=== PATIENT | male | born 1985 | race Two or more races ===

== ENCOUNTER 2021-08-31 06:20 | Emergency (ER) | payer MEDICAID, OTHER ==
[~2021-08-31] VITALS: Ht 185.4 cm; Wt 95.3 kg
[2021-08-31] MEDS ORDERED: ALUM & MAG HYDROX-SIMETH LIQ(MAALOX) 30 ML PO ONE (06:45)
[2021-08-31] MEDS ORDERED: FAMOTIDINE (10MG/ML) 2ML VL IV ONE (06:45)
[2021-08-31] MEDS ORDERED: ONDANSETRON HCL 4 MG/2 ML VIAL IV ONE (06:45)
[2021-08-31] MEDS ORDERED: LIDOCAINE VISCOUS 2% 15ML UD PO ONE (06:45)
[2021-08-31 07:00] VITALS: BP 131/72
[2021-08-31 07:59] LABS: Basophils # (auto) 0 10 ^3/uL (0-0.2); Basophils % (auto) 0.2 % (0.0-2.0); Eosinophils # (auto) 0 10 ^3/uL (0-0.8); Eosinophils % (auto) 0.1 % (0.0-7.0); Hematocrit 40.8 % (41.0-53.0); Lymphocytes % (auto) 9.5 % (10.0-50.0); Mean Corpuscular Hemoglobin 31.5 pg (28.0-32.0); Mean Corpuscular Hgb Conc. 34.4 g/dL (32.0-36.0); Mean Corpuscular Volume 91.6 fL (80.0-100.0); Monocytes # (auto) 0.8 10 ^3/uL (0-1.3); Monocytes % (auto) 7.4 % (0.0-12.0); Neutrophils # (auto) 9.1 10 ^3/uL (1.6-8.6); Neutrophils % (auto) 82.8 % (37.0-80.0); Red Blood Cells 4.45 10^6/uL (4.5-5.90); Red Cell Distribution Width 13.5 % (11.8-14.3)
[2021-08-31 08:10] LABS: Albumin 4.1 g/dL (3.4-5.0); Calcium 9.1 mg/dL (8.5-10.1); Potassium 3.9 mmol/L (3.5-5.1)
[2021-08-31 08:15] LABS: BUN/Creatinine Ratio 14.4; Bilirubin, Total 1.2 mg/dL (0.2-1.0); Total Protein 7.9 g/dL (6.4-8.2)
[2021-08-31 09:01] LABS: INR 1.02 (0.9-1.15); Partial Thromboplastin Time 26.6 sec (23.6-33.0)
== END 2021-08-31 09:52 | disposition home or self-care (01) ==
LOC: EDBD 06:20 → ER 06:20
DX: R11.2 Nausea with vomiting, unspecified (principal); F10.10 Alcohol abuse, uncomplicated; F17.210 Nicotine dependence, cigarettes, uncomplicated; F12.10 Cannabis abuse, uncomplicated; R94.31 Abnormal electrocardiogram [ECG] [EKG]
CPT/HCPCS: 36415; 80053; 85025; 85610; 85730; 86850; 86900; 86901; 93005; 96374; 96375; 99284; J2405; J3490

== ENCOUNTER 2021-09-01 09:25 | Inpatient (IN) | payer MEDICAID ==
[~2021-09-01] VITALS: Ht 177.8 cm; Wt 96.5 kg
[2021-09-01] MEDS ORDERED: OXYCODONE W/ ACETAMINOPHEN 5/325MG TABLET PO ONE (11:00)
[2021-09-01] MEDS ORDERED: ONDANSETRON HCL 4 MG/2 ML VIAL IV ONE ×2 (11:00→12:15)
[2021-09-01 11:10] LABS: Basophils # (auto) 0 10 ^3/uL (0-0.2); Basophils % (auto) 0.3 % (0.0-2.0); Eosinophils # (auto) 0 10 ^3/uL (0-0.8); Hematocrit 45.3 % (41.0-53.0); Hemoglobin 15.8 g/dL (13.5-17.5); Lymphocytes # (auto) 0.6 10 ^3/uL (0.4-5.4); Lymphocytes % (auto) 4.7 % (10.0-50.0); Mean Corpuscular Hemoglobin 32.1 pg (28.0-32.0); Mean Corpuscular Hgb Conc. 34.8 g/dL (32.0-36.0); Mean Corpuscular Volume 92.2 fL (80.0-100.0); Monocytes # (auto) 0.4 10 ^3/uL (0-1.3); Monocytes % (auto) 3.3 % (0.0-12.0); Neutrophils # (auto) 10.8 10 ^3/uL (1.6-8.6); Neutrophils % (auto) 91.7 % (37.0-80.0); Nucleated Red Blood Cells % 0.1 %; Red Blood Cells 4.91 10^6/uL (4.5-5.90); Red Cell Distribution Width 13.4 % (11.8-14.3); White Blood Cell 11.8 10^3/uL (4.4-10.8)
[2021-09-01 11:40] LABS: Albumin 4.2 g/dL (3.4-5.0); Anion Gap 7 (5-15); Blood Urea Nitrogen 11 mg/dL (7-18); Calcium 9.7 mg/dL (8.5-10.1); Carbon Dioxide 27 mmol/L (21-32); Chloride 99 mmol/L (98-107); Glucose 119 mg/dL (74-106); Potassium 3.8 mmol/L (3.5-5.1); Sodium 133 mmol/L (136-145)
[2021-09-01 11:46] LABS: Alanine Aminotransferase 100 U/L (16-61); Alkaline Phosphatase 117 U/L (45-117); Aspartate Aminotransferase 68 U/L (15-37); BUN/Creatinine Ratio 8.4; Bilirubin, Total 1.3 mg/dL (0.2-1.0); GFR African American 80 mL/min; GFR Non-African American 66 mL/min; Total Protein 8.7 g/dL (6.4-8.2)
[2021-09-01] MEDS ORDERED: SODIUM CHLORIDE 0.9% 1,000 ML IV ONE (12:15)
[2021-09-01] MEDS ORDERED: VANCOMYCIN 1GM/250ML 250 ML IV ONE (12:15)
[2021-09-01] MEDS ORDERED: PIPERACILLIN-TAZOB 3.375GM 100 ML IV ONE (12:15)
[2021-09-01] MEDS ORDERED: HYDROmorphone HCL 2 MG/ML VL IV ONE (12:15)
[2021-09-01] MEDS ORDERED: ROCURONIUM 10MG/ML 10ML VIAL IV ONE (13:45)
[2021-09-01] MEDS ORDERED: SUCCINYLCHOLINE CHLORIDE 20 MG/ML 10ML VIAL IV ONE (13:45)
[2021-09-01] MEDS ORDERED: NEOSTIGMINE 1 MG/ML INJ (10mg/10ML VIAL) ONE (13:48)
[2021-09-01] MEDS ORDERED: GLYCOPYRROLATE 0.2 MG/ML 1ML VIAL ONE (13:48)
[2021-09-01] MEDS ORDERED: MEPERIDINE HCL (50 MG/ML) 1 ML VIAL ONE (13:48)
[2021-09-01] MEDS ORDERED: MIDAZOLAM HCL 2MG/2ML 2ml VIAL (1mg/ml) ONE (13:48)
[2021-09-01] MEDS ORDERED: ONDANSETRON HCL 4 MG/2 ML VIAL ONE (13:48)
[2021-09-01] MEDS ORDERED: SODIUM CHLORIDE LOCK 10 ML ONE (13:48)
[2021-09-01] MEDS ORDERED: PROPOFOL 10 MG/ML 20 ML IV ONE (13:48)
[2021-09-01] MEDS ORDERED: fentaNYL CITRATE 100 MCG/2 ML VL ONE (13:48)
[2021-09-01] MEDS ORDERED: DexAMETHasone SOD PHOS 10MG/1ML VIAL INJ ONE (13:56)
[2021-09-01] MEDS ORDERED: BUPIVACAINE W/ EPINEPH 0.25% INJ 50ML MDV ONE (14:07)
[2021-09-01] MEDS ORDERED: KETOROLAC TROMETH 30 MG/ML 1ML VIAL IV ONE (14:15)
[2021-09-01] MEDS ORDERED: MORPHINE SULFATE 4 MG/ML SYR/VIAL IV PRN (14:15)
[2021-09-01] MEDS ORDERED: METOCLOPRAMIDE HCL 5MG/ml INJ 2ml VIAL IV PRN (14:15)
[2021-09-01] MEDS ORDERED: fentaNYL CITRATE 100 MCG/2 ML VL IV PRN (14:15)
[2021-09-01] MEDS ORDERED: SUGAMMADEX 200mg/2ml Vial (100MG/ML) IV ONE (15:35)
[2021-09-01] MEDS: HYDROmorphone HCL 2 MG/ML VL IV PRN ×6 (16:01→22:36)
[2021-09-01] MEDS ORDERED: LACTATED RINGER'S 1,000 ML IV SCH (16:15)
[2021-09-01 17:08] VITALS: BP 120/83
[2021-09-01] MEDS ORDERED: NICOTINE 7MG/24HR TOPICAL PATCH TD ONE (17:30)
[2021-09-01] MEDS ORDERED: SODIUM CHLORIDE 0.9% 3,000 ML IV ONE (17:30)
[2021-09-01 18:51] LABS: INR 1.1 (0.9-1.15)
[2021-09-01 22:00] VITALS: BP 118/88
[2021-09-01] MEDS: SODIUM CHLORIDE 0.9% 1,000 ML IV SCH (22:34)
[2021-09-01] MEDS: metroNIDAZOLE 500MG/100ML 100 ML IV SCH (22:35)
[2021-09-02] MEDS: HYDROmorphone HCL 2 MG/ML VL IV PRN ×5 (02:33→23:47)
[2021-09-02] MEDS: NICOTINE 7MG/24HR TOPICAL PATCH TD SCH (05:00)
[2021-09-02 05:58] LABS: Basophils # (auto) 0 10 ^3/uL (0-0.2); Basophils % (auto) 0.2 % (0.0-2.0); Eosinophils # (auto) 0 10 ^3/uL (0-0.8); Hematocrit 30.7 % (41.0-53.0); Hemoglobin 10.8 g/dL (13.5-17.5); Lymphocytes # (auto) 0.8 10 ^3/uL (0.4-5.4); Mean Corpuscular Hemoglobin 32.5 pg (28.0-32.0); Mean Corpuscular Hgb Conc. 35.2 g/dL (32.0-36.0); Mean Corpuscular Volume 92.4 fL (80.0-100.0); Monocytes # (auto) 0.9 10 ^3/uL (0-1.3); Neutrophils # (auto) 5.9 10 ^3/uL (1.6-8.6); Neutrophils % (auto) 77.8 % (37.0-80.0); Red Blood Cells 3.33 10^6/uL (4.5-5.90); Red Cell Distribution Width 13.3 % (11.8-14.3); White Blood Cell 7.6 10^3/uL (4.4-10.8)
[2021-09-02] MEDS ORDERED: NICOTINE 7MG/24HR TOPICAL PATCH TD SCH ×2 (06:00→10:00)
[2021-09-02 06:12] LABS: INR 1.1 (0.9-1.15)
[2021-09-02 06:22] LABS: Potassium 4.2 mmol/L (3.5-5.1)
[2021-09-02 06:24] LABS: Albumin 2.9 g/dL (3.4-5.0); BUN/Creatinine Ratio 13.3; Calcium 8.4 mg/dL (8.5-10.1)
[2021-09-02 06:29] LABS: Bilirubin, Total 0.4 mg/dL (0.2-1.0)
[2021-09-02] MEDS: metroNIDAZOLE 500MG/100ML 100 ML IV SCH ×3 (06:33→21:53)
[2021-09-02] MEDS: SODIUM CHLORIDE 0.9% 1,000 ML IV SCH ×2 (07:11→16:30)
[2021-09-02 09:25] VITALS: BP 133/68
[2021-09-02] MEDS: cefTRIAXone 1GM/50ML D5W 50 ML IV SCH (09:25)
[2021-09-02] MEDS ORDERED: ONDANSETRON HCL 4 MG/2 ML VIAL IV PRN (10:30)
[2021-09-02] MEDS: HYDROcodone-ACET 5/325MG TAB PO PRN ×2 (10:55→21:54)
[2021-09-02 12:51] VITALS: BP 144/65
[2021-09-02 15:40] LABS: Urine Bacteria NONE SEEN /hpf (None Seen); Urine Blood Negative /uL (Negative); Urine Mucus FEW (None Seen); Urine Specific Gravity 1.006 (1.001-1.035); Urine WBC <1 /hpf (0 - 3)
[2021-09-02 16:01] LABS: Alcohol, Urine < 3.0 mg/dL (0-10); Amphetamine Screen, Urine NEGATIVE (NEGATIVE); Barbiturate Scree,Urine NEGATIVE (NEGATIVE); Benzodiazephine Screen, Urine NEGATIVE (NEGATIVE); Cannabinoid Screen, Urine POSITIVE (NEGATIVE); Cocaine Screen, Urine NEGATIVE (NEGATIVE); Opiate Scree,Urine NEGATIVE (NEGATIVE); Phencyclidine Screen, Urine NEGATIVE (NEGATIVE)
[2021-09-02 16:39] VITALS: BP 130/71
[2021-09-02 22:00] VITALS: BP 137/96
[2021-09-03] MEDS: HYDROmorphone HCL 2 MG/ML VL IV PRN ×2 (03:51→09:33)
[2021-09-03] MEDS: HYDROcodone-ACET 5/325MG TAB PO PRN ×3 (05:23→16:45)
[2021-09-03] MEDS: SODIUM CHLORIDE 0.9% 1,000 ML IV SCH (05:29)
[2021-09-03] MEDS: metroNIDAZOLE 500MG/100ML 100 ML IV SCH (06:16)
[2021-09-03] MEDS: NICOTINE 7MG/24HR TOPICAL PATCH TD SCH (06:27)
[2021-09-03 06:38] LABS: Basophils # (auto) 0 10 ^3/uL (0-0.2); Basophils % (auto) 0.2 % (0.0-2.0); Eosinophils # (auto) 0.1 10 ^3/uL (0-0.8); Eosinophils % (auto) 0.9 % (0.0-7.0); Hematocrit 31.5 % (41.0-53.0); Hemoglobin 10.9 g/dL (13.5-17.5); Lymphocytes # (auto) 0.8 10 ^3/uL (0.4-5.4); Lymphocytes % (auto) 12.2 % (10.0-50.0); Mean Corpuscular Hemoglobin 31.8 pg (28.0-32.0); Mean Corpuscular Hgb Conc. 34.6 g/dL (32.0-36.0); Mean Corpuscular Volume 92.2 fL (80.0-100.0); Monocytes # (auto) 0.6 10 ^3/uL (0-1.3); Monocytes % (auto) 9.6 % (0.0-12.0); Neutrophils # (auto) 5.1 10 ^3/uL (1.6-8.6); Neutrophils % (auto) 77.1 % (37.0-80.0); Red Blood Cells 3.42 10^6/uL (4.5-5.90); Red Cell Distribution Width 13.4 % (11.8-14.3); White Blood Cell 6.6 10^3/uL (4.4-10.8)
[2021-09-03 06:53] LABS: BUN/Creatinine Ratio 5.9; Calcium 8.4 mg/dL (8.5-10.1); Potassium 3.8 mmol/L (3.5-5.1)
[2021-09-03] MEDS: cefTRIAXone 1GM/50ML D5W 50 ML IV SCH (09:00)
[2021-09-03 09:18] VITALS: BP 130/49
[2021-09-03] MEDS ORDERED: HYDROmorphone HCL 2 MG/ML VL IV PRN (09:45)
[2021-09-03] MEDS ORDERED: SODIUM CHLORIDE 0.9% 1,000 ML IV SCH (09:45)
[2021-09-03 13:59] VITALS: BP 125/67
[2021-09-03 17:00] VITALS: BP 120/64
== END 2021-09-03 17:30 | disposition home or self-care (01) | DRG 710 ==
LOC: EDBD 09:25 → ER 09:25 → OVERFLOW 14:42 → CENTRAL 16:42
PROVIDERS: ADMIT Registered Nurse; ATTEND Internal Medicine
PROC: 0DTJ4ZZ Resection of Appendix, Percutaneous Endoscopic Approach (ICD-10-PCS; principal; 2021-09-01 15:03)
DX: A41.9 Sepsis, unspecified organism (principal); N17.9 Acute kidney failure, unspecified; K35.80 Unspecified acute appendicitis; F10.10 Alcohol abuse, uncomplicated; F12.90 Cannabis use, unspecified, uncomplicated; E66.9 Obesity, unspecified; Z20.822 Contact with and (suspected) exposure to COVID-19; Z68.30 Body mass index [BMI] 30.0-30.9, adult; Z71.6 Tobacco abuse counseling; Z72.0 Tobacco use; Y90.0 Blood alcohol level of less than 20 mg/100 ml
CPT/HCPCS: 36415; 74176; 80048; 80053; 80307; 80320; 81001; 83605; 84484; 85025; 85610; 86850; 86900; 86901; 87040; 93005; 96361; 96365; 96375; 96376; G0378; J0330; J0696; J1100; J2250; J2405; J2704; J3490

== ENCOUNTER 2021-10-26 20:49 | Emergency (ER) | payer MEDICAID ==
[~2021-10-26] VITALS: Ht 190.5 cm; Wt 95.7 kg
[2021-10-26 21:33] VITALS: BP 121/82
== END 2021-10-27 04:10 | disposition left against medical advice (07) ==
LOC: ER 21:07
DX: M79.89 Other specified soft tissue disorders (principal); Z53.21 Procedure and treatment not carried out due to patient leaving prior to being seen by health care provider

== ENCOUNTER 2021-10-28 15:39 | Emergency (ER) | payer MEDICAID ==
[~2021-10-28] VITALS: Ht 182.9 cm; Wt 95.3 kg
[2021-10-28 15:47] VITALS: BP 138/88
[2021-10-29] MEDS ORDERED: LIDOCAINE 1% HCL (LOCAL ANESTH.) INJ 20ML MDV ONE (06:58)
[2021-10-29] MEDS ORDERED: CEPH-509 PO (07:08)
[2021-10-29] MEDS ORDERED: NAPR500T31 PO (07:49)
== END 2021-10-29 07:50 | disposition left against medical advice (07) ==
LOC: EDBD 15:39 → EDSEX 15:39 → ER 15:39
DX: M79.672 Pain in left foot (principal); Z53.21 Procedure and treatment not carried out due to patient leaving prior to being seen by health care provider
CPT/HCPCS: J2001

== ENCOUNTER 2021-10-28 23:53 | Emergency (ER) | payer MEDICAID ==
[~2021-10-28] VITALS: Ht 182.9 cm; Wt 95.3 kg
[2021-10-28 23:54] VITALS: BP 120/90
[2021-10-29] MEDS ORDERED: LIDOCAINE 1% HCL (LOCAL ANESTH.) INJ 20ML MDV IJ ONE (07:00)
[2021-10-29] MEDS ORDERED: CEPH-509 PO (07:08)
[2021-10-29] MEDS ORDERED: NAPR500T31 PO (07:49)
== END 2021-10-29 07:37 | disposition home or self-care (01) ==
LOC: ER 10-29 00:01
DX: S90.852A Superficial foreign body, left foot, initial encounter (principal); F17.210 Nicotine dependence, cigarettes, uncomplicated; F12.10 Cannabis abuse, uncomplicated; W22.8XXA Striking against or struck by other objects, initial encounter; Y93.89 Activity, other specified; Y92.89 Other specified places as the place of occurrence of the external cause; Y99.8 Other external cause status
CPT/HCPCS: 73620; 73630